=== PATIENT | male | born 1945 | race Caucasian/White ===

== ENCOUNTER 2024-12-25 19:11 | Emergency (ER) | payer MEDICARE, SELFPAY ==
--- NOTE | ~2024-12-25 | XR_ITS ---
XR chest 1V portable Ordering provider: Ese Livingston MD History: 79 years Male with . palpitations, hx afib vtaCH . Comparison: None. FINDINGS: MEDIASTINUM: The cardiac silhouette is slightly enlarged. LUNGS: No infiltrates, effusions or pneumothorax. OTHER: No free air under the diaphragm. IMPRESSION: No acute cardiopulmonary pathology. Reviewed, dictated and finalized at location A.
[2024-12-25 19:15] VITALS: BP 144/106; PULSE 126; RESP 18; TEMP 36.5; O2SAT 99
--- NOTE | 2024-12-25 19:23 | ECG_ITS ---
Test Date: 2024-12-25 19:22:47 Measurements Intervals [place] Rate: 124 P: 219 FL: 215 QRS: -40 QRSD: 103 T: 67 QT: 309 QTc: 444 Interpretive Statements SINUS TACHYCARDIA WITH FIRST DEGREE AV BLOCK WITH FIRST DEGREE AV BLOCK WITH OCCASIONAL VENTRICULAR PREMATURE COMPLEXES LEFT AXIS DEVIATION [QRS AXIS < -30] INCOMPLETE RIGHT BUNDLE BRANCH BLOCK [90+ ms QRS DURATION, TERMINAL R IN V1/V2, 40+ ms S IN I/aVL/V4/V5/V6] SEPTAL MYOCARDIAL INFARCTION , PROBABLY OLD [40+ ms Q WAVE IN V1/V2] No previous ECG available for comparison Electronically Signed On 12-26-2024 10:41:46 CDT by Alejandro Morales M.D.
[2024-12-25 19:35] LABS: Basophils Percent Auto 0.5 % (0.2-1.2); Eosinophils Absolute Auto 0.2 K/mm3 (0-0.3); Eosinophils Percent Auto 2.8 % (0-4.4); Hematocrit 40.9 % (42.0-52.0); Immature Granulocyte Absolute 0.02 K/mm3 (0.00-0.031); Immature Granulocyte Percent A 0.3 % (0-0.5); Lymphocytes Absolute Auto 2.12 K/mm3 (0.9-3.2); Lymphocytes Percent Auto 35.4 % (18.3-44.2); Mean Corpuscular HGB Conc 31.8 g/dl (32-36); Mean Corpuscular Volume 97.6 fl (80-100); Mean Platelet Volume 11.9 fl (7.4-10.4); Monocytes Absolute Auto 0.7 K/mm3 (0.1-0.6); Monocytes Percent Auto 12.4 % (2.6-8.5); Neutrophils Absolute Auto 2.9 K/mm3 (1.3-6.7); Neutrophils Percent Auto 48.6 % (45.5-73.1); Platelet Count Result 159 k/mm3 (150-375); Red Blood Count 4.19 M/mm3 (4.6-6.20); Red Cell Distribution Width 12.4 % (11.5-14.5)
--- NOTE | 2024-12-25 19:39 | ED_ITS ---
HPI - Arrhythmia/Palpitations General Chief Complaint: Arrhythmia/Palpitations Stated Complaint: palpations Time Seen by Provider: 12/25/24 19:21 Source: patient Mode of arrival: ambulatory Limitations: no limitations and other (speaks with a slight stutter/hesitancy in producing words but easily understandable) History of Present Illness HPI narrative: Patient visiting from out of state. Currently visiting because his girlfriend's sister . He resides in [place] which is where his care is. He reports with a history of palpitations and dizziness while seated eating dinner. He reports 8 episodes in 30 minutes PN each occurring for approximately 5-10 seconds each with the symptoms associated with shortness of breath. He has a history of atrial fibrillation status post ablation with the last 1 occurring in March of 2022. He also has atrial flutter since October 20 that is constant and he is scheduled for another ablation that was supposed to occur this week but which was rescheduled for February 12, 2025 given he was leaving town. He also has a history of ablation for of prior history of V-tach. That ablation occurred in [address] at [facility] [address]. Wisdom. His current welding machine operator helper arc is an EP Dr Dow through [facility], since 2007. He recently had a 10 [address] car ride to travel to this area.. He notes that while he had these episodes he knew he was having arrhythmia. He has no current symptoms since arriving to the emergency department. His symptoms were not associated with chest pain but he was having shortness of breath with them. He takes metoprolol 50 mg b.i.d. and Eliquis b.i.d. and has received all doses of these medications today (both AM and PM). Related Data Allergies Allergy/AdvReac Type Severity Reaction Status Date / Time penicillin G Allergy Palpitation Verified 12/25/24 19:13 s [facility] Past Medical History Medical History History of atrial flutter History of ventricular tachycardia History of atrial fibrillation Surgical History Surgical History History of cardiac radiofrequency ablation for vtach [address] [facility] Dr Wisdom History of cardiac ablation for atrial fibrillation March 2022; [facility] ([place]) Social History Social History (Updated 12/25/24 @ 20:37 by Ese Livingston MD) Additional living arrangements comments: Resides in [place] Exam 2 Narrative: GENERAL: Well-appearing, well-nourished, and in no acute distress. HEAD: Normocephalic, atraumatic. EYES: Non injected, non icteric ENT: Nares clear, no rhinorrhea or epistaxis. NECK: Supple. CHEST: Speaking in full sentences. No respiratory distress. HEART: Tachycardic rate and rhythm. . ABDOMEN: Soft, nondistended. EXTREMITIES: Normal range of motion. No lower extremity edema. SKIN: Warm, dry, no rash. NEURO: No focal deficits. Alert and oriented x3. PSYCH: Normal mood and affect. Course Vital Signs Vital signs: Vital Signs Temperature 97.7 F 12/25/24 19:15 Pulse Rate 126 H 12/25/24 19:15 Respiratory Rate 18 12/25/24 19:15 Blood Pressure 144/106 H 12/25/24 19:15 Pulse Oximetry 99 12/25/24 19:15 Oxygen Delivery Room Air 12/25/24 19:15 Temperature 97.7 F 12/25/24 19:15 Pulse Rate 123 H 12/25/24 22:41 Respiratory Rate 15 12/25/24 22:41 Blood Pressure 116/84 12/25/24 22:41 Pulse Oximetry 100 12/25/24 22:41 Oxygen Delivery Room Air 12/25/24 19:15 MDM - Arrhythmia/Palpitations MDM Narrative Medical decision making narrative: Patient presents with episodes of dizziness and palpitations associated with shortness of breath. There were approximately 8 episodes within a 30 minute. Occurring while he was seated for dinner prior to arrival. No position changes preceding or during these events. Each episode lasted for approximately 5-10 second He has history of atrial fibrillation, atrial flutter, V-tach and has required multiple ablations including in 1997 for V-tach as well as in March of 2022 for atrial fibrillation. Since October 20 he has had constant palpitations with atrial flutter and was scheduled for an ablation this week in [place] where he resides but had to reschedule since he is in the area visiting due to the of his girlfriend's sister. In the emergency department he is afebrile with vital signs notable for tachycardia and hypertension. Normocytic anemia with no prior for comparison. Patient declines IV push metoprolol 5mg as he states he always at rate in the 120s-130s. IV fluids ordered. Troponin normal. No electrolyte abnormalities. Orthostats are reviewed and he remains tachycardic but otherwise hemodynamically stable. Attempted to contact patient's welding machine operator helper arc through [facility] but informed that we would have to consult them in the morning. Patient reports he has a home cardiac monitoring device he wears and the report is on his laptop at the hotel. Inquiring if I can review it. I did note that sometimes the tracing of these is poor but if he desired I could review it it was brought to the hospital. Patient provides tracing from when he was episodic. It does show an episode of 14 beats the wide complex concerning for V-tach. Discussed with Dr Mullins at 22:15pm. We do not have EP services at [place]. Per him, this sounds chronic. Advises against driving a car. Given asymptomatic w/o complaints here and w/o issues of labs, recommends discharge and follow up with his welding machine operator helper arc. Does not recommend any changes to medication, either change in metoprolol dose/frequency or the addition of an alternative/additional antiarrhythmic. Differential Diagnosis Differential diagnosis: Likely palpitations, anxiety, sinus tachycardia, artial fibrillation, artial flutter, ventricular premature beats, supraventricular tachycardia, ventricular tachycardia, WPW and other (Thyroid abnormalities, electrolyte abnormalities) Lab Data Attestation: I reviewed the patient's lab results. 12/25/24 19:24 12/25/24 19:24 Labs: Lab Results 12/25/24 12/25/24 Range/Units 19:24 19:56 WBC 6.0 (4.5-10.0) K/mm3 RBC 4.19 L (4.6-6.20) M/mm3 Hgb 13.0 L (14.0-18.0) g/dL Hct 40.9 L (42.0-52.0) % MCV 97.6 (80-100) fl MCH 31.0 (26-34) pg MCHC 31.8 L (32-36) g/dl RDW 12.4 (11.5-14.5) % Plt Count 159 (150-375) k/mm3 MPV 11.9 H (7.4-10.4) fl Immature Gran % (Auto) 0.3 (0-0.5) % Neut % (Auto) 48.6 (45.5-73.1) % Lymph % (Auto) 35.4 (18.3-44.2) % Van Zandt % (Auto) 12.4 H (2.6-8.5) % Eos % (Auto) 2.8 (0-4.4) % Baso % (Auto) 0.5 (0.2-1.2) % Lymph # (Auto) 2.12 (0.9-3.2) K/mm3 [place]andt # (Auto) 0.7 H (0.1-0.6) K/mm3 Eos # (Auto) 0.2 (0-0.3) K/mm3 Baso # (Auto) 0.0 (0.0-0.1) K/mm3 Abs Immat Gran (auto) 0.02 (0.00-0.031) K/mm3 Absolute Neuts (auto) 2.9 (1.3-6.7) K/mm3 Absolute Nucleated RBC 0.000 (0.0-0.012) K/mm3 Nucleated RBC % 0.0 (0.0-0.2) % PT 16.1 H (11.1-14.7) Seconds INR 1.2 APTT 28.4 (22.3-36.8) Seconds Sodium 139 (137-145) mmol/L Potassium 3.8 (3.4-5.0) mmol/L Chloride 101 (98-107) mmol/L Carbon Dioxide 29 (22-30) mmol/L Anion Gap 9 (4-12) mmol/L BUN 25 H (9-20) mg/dL Creatinine 0.94 (0.7-1.3) mg/dL Estim Creat Clear Calc 62 ml/min Estimated GFR > 60 (59 - ) Glucose 112 H (65-110) mg/dL Calcium 9.3 (8.4-10.2) mg/dL Magnesium Cancelled 2.0 Total Bilirubin 0.4 (0.2-1.3) mg/dL AST 33 (17-59) U/L ALT 32 (6-50) U/L Alkaline Phosphatase 97 (38-126) U/L Troponin I < 0.012 (0.000-0.034) ng/mL Total Protein 8.0 (6.3-8.2) g/dL Albumin 4.5 (3.5-5.1) g/dL Lipase 36 (23-300) U/L TSH 3.450 (0.465-4.680) uIU/mL Imaging Data Radiologist's impression: Impressions Chest X-Ray 12/25/24 19:47 IMPRESSION: No acute cardiopulmonary pathology. ECG Data EKG #1: Attestation: I personally reviewed and interpreted this ECG as follows: ECG completion date: 12/25/24 ECG completion time: 19:22 Interpretation: Irregularly irregular rhythm at a rate of 124 beats per minute (ectopic atrial tachycardia versus afib) There are occasional possible P waves but they do not precede all QRS complexes. QRS 103. QT/QTC 309/382. No T-wave inversions. Discharge Plan Discharge Clinical Impression: Palpitations, Arrhythmia Patient Disposition: Home, Self-Care Condition: Stable Instructions: Antibiotic Form, Heart Palpitations (DC), Atrial Tachycardia (DC), Cardiac Ablation (DC) Additional Instructions: At this point is recommended that you continue taking your medications as prescribed. Call your welding machine operator helper arc, Dr Kong's office at [facility] in the morning to discuss. Do NOT drive in the interim. If it occurs again, present immediately to this or another Emergency Department. Can request records be obtained from your visit here today. Your TSH and electrolytes were normal today. Patient Language: Urdu Follow-up/Referrals: UNKNOWN,DOCTOR [Primary Care Provider] - Time of Disposition: 22:35
[2024-12-25 19:45] LABS: Alanine Aminotransferase 32 U/L (6-50); Albumin Level 4.5 g/dL (3.5-5.1); Alkaline Phosphatase 97 U/L (38-126); Anion Gap 9 mmol/L (4-12); Aspartate Amino Transferase 33 U/L (17-59); Bilirubin,Total 0.4 mg/dL (0.2-1.3); Blood Urea Nitrogen 25 mg/dL (9-20); Calcium 9.3 mg/dL (8.4-10.2); Carbon Dioxide 29 mmol/L (22-30); Chloride 101 mmol/L (98-107); Estimated CRCL calculation 62 ml/min; Estimated Glomerular Filt Rate > 60; Glucose 112 mg/dL (65-110); Lipase 36 U/L (23-300); Potassium 3.8 mmol/L (3.4-5.0); Sodium 139 mmol/L (137-145)
[2024-12-25 19:46] LABS: INR 1.2; Partial Thromboplastin Time 28.4 Seconds (22.3-36.8); Prothrombin Time 16.1 Seconds (11.1-14.7)
--- OUTSIDE RECORDS SUMMARY | 2024-12-25 19:52 | XMS_ITS | Encounter Summary ---
Author Organization [facility] stem Address [address] [place] [address] Care Team Providers Care Fast Food Team Member Name Role Phone Virginia Beckett MD Primary Care Provider Unava Lico Martin MD Primary Care Provider Sallie Heard Unavailable [phone] Ander Oropeza CNP Unavailable [phone] Ami Bethea MD Unavailable Lico Hendrix MD Unavailable [phone] Paulette Nowak CNP Unavailable Sara Garcia PA-C Unavailable Ander Oropeza CNP Unavailable [phone] Sara Garcia PA-C Unavailable Encounter Details Date Type Department Care Team (Late st Contact Info) Description 12/17/2014 Scanned Document [facility] Information Management - [facility] [address] [place] [address] Ordering, Generic Social History Tobacco Use Types Packs/Day Years Used Date Smoking Tobacco: Never Alcohol Use Standard Drinks/Week Comments Yes 0.8 (1 standard drink = 0.6 oz p ure alcohol) Sex and Gender Information Value Date Recorded Sex Assigned at Not on file Legal Sex Male 10:41 AM EDT Gender Identity Not on file Sexual Orientation Not on file documented as of this encounter Plan of Treatment Upcoming Encounters Date Type Department Care Team (Late st Contact Info) Description 02/11/2025 10:30 AM EDT Appointment [facility] Electrophysiology Device Laboratory - [facility] [address] [facility] [address] [place] [phone] Bhupendra Kong MD [address] [place] [address] 04/21/2025 10:00 AM EDT Office Visit [facility] Cardiovascular Medicine - [facility] [address] [place] [address] Bhupendra Kong MD [address] [place] [address] documented as of this encounter Visit Diagnoses Not on filedocumented in this encounter Additional Health Concerns Assessment Noted Time A Body Mass Index follow-up plan has been documented for the patient 10/30/2014 12:00 PM EST documented as of this encounter Care Teams Fast Food Team Member Relationship Specialty Start Date End Date Virginia Beckett MD PCP - General 08/02/12 08/29/15 Lico Hendrix MD [address] [place] [address] PCP - General 08/30/15 [place] [address] [address] PCP - [facility] 03/31/23 12/30/23 Ander Oropeza CNP [address] [place] [address] PCP - [facility] 12/30/22 03/30/23 [place] [address] [place] [address] PCP - [facility] 10/01/22 12/29/22 Lico Hendrix MD [address] [place] [address] PCP - [facility] 12/30/21 2 Paulette Nowak CNP [address] [place] [address] PCP - [facility] 10/01/21 12/29/21 Sara Garcia PA-C [address] [place] [address] PCP - [facility] 12/31/23 4 Ander Oropeza CNP [address] [place] [address] PCP - [facility] 07/01/24 4 Sara Garcia PA-C [address] [place] [address] PCP - [facility] 10/01/24 documented as of this encounter
--- OUTSIDE RECORDS SUMMARY | 2024-12-25 19:52 | XMS_ITS | Encounter Summary ---
Author Organization [facility] stem Address [address] [place] [address] Care Team Providers Care [employer] Room Service Supervisor Name Role Phone Lico Hendrix MD Primary Care Provider Sallie Heard Unavailable [phone] Ander Oropeza CNP Unavailable [phone] Ami Bethea MD Unavailable Lico Hendrix MD Unavailable [phone] Paulette Nowak HOSPITALITY COORDINATOR Unavailable Sara Garcia PA-C Unavailable Ander Oropeza CNP Unavailable [phone] Sara Garcia PA-C Unavailable Encounter Details Date Type Department Care Team (Late st Contact Info) Description 09/17/2015 Scanned Document [facility] Paulette Yang MD Social History Tobacco Use Types Packs/Day Years Used Date Smoking Tobacco: Never Alcohol Use Standard Drinks/Week Comments Yes 11 (1 standard drink = 0.6 oz pu re alcohol) Sex and Gender Information Value Date Recorded Sex Assigned at Not on file Legal Sex Male 10:41 AM EDT Gender Identity Not on file Sexual Orientation Not on file documented as of this encounter Miscellaneous Notes * Significant Event - Paulette Yang MD - 09/17/2015 8:00 AM EST From May 2013 until March 28, 2019, there was information from a Perioperative Nursing Data Set (PNDS) that may have been entered in a patient's chart without clinical intervention in some procedural/surgical encounters. PNDS ramirez may have been automatically populated with a value of 'YES' by a default setting within the EMR. To determine if this information was entered without an ability for clinical intervention in a given instance, please review the chart. documented in this encounter Plan of Treatment Upcoming Encounters Date Type Department Care Team (Late st Contact Info) Description 02/11/2025 10:30 AM EDT Appointment [facility] Electrophysiology Device Laboratory - [place] [address] [facility] [address] [place] [phone] Bhupendra Kong MD [address] [place] [address] 04/21/2025 10:00 AM EDT Office Visit [facility] Cardiovascular Medicine - [facility] [address] [place] [address] Bhupendra Kong MD [address] [place] [address] documented as of this encounter Visit Diagnoses Not on filedocumented in this encounter Additional Health Concerns Assessment Noted Time A Body Mass Index follow-up plan has been documented for the patient 10/30/2014 12:00 PM EST documented as of this encounter Care Teams [employer] Room Service Supervisor Relationship Specialty Start Date End Date Lico Hendrix MD [address] [place] [address] PCP - General 08/30/15 [place] [address] [address] [place] [address] PCP - [facility] 03/31/23 12/30/23 Ander Oropeza, HOSPITALITY COORDINATOR [address] [place] [address] PCP - [facility] 12/30/22 03/30/23 [place] [address] [address] [facility] [place] [address] PCP - [facility] 10/01/22 12/29/22 Lico Hendrix MD [address] [place] [address] PCP - [facility] 12/30/21 2 Paulette Nowak CNP [address] [place] [address] PCP - [facility] 10/01/21 12/29/21 Sara Garcia PA-C [address] [place] [address] PCP - [facility] 12/31/23 4 Ander Oropeza CNP [address] [place] [address] PCP - [facility] 07/01/24 4 Sara Garcia PA-C [address] [place] [address] PCP - [facility] 10/01/24 documented as of this encounter
--- OUTSIDE RECORDS SUMMARY | 2024-12-25 19:52 | XMS_ITS | Encounter Summary ---
Author Organization [facility] stem Address [address] [place] [address] Care Team Providers Care Regional Liaison Name Role Phone Lico Hendrix MD Primary Care Provider Sallie Heard Unavailable [phone] Ander Oropeza CNP Unavailable Ami Bethea MD Unavailable [phone] Lico Hendrix MD Unavailable [phone] Paulette Nowak [employer] Unavailable Sara Garcia PA-C Unavailable Ander Oropeza CNP Unavailable [phone] Sara Garcia PA-C Unavailable Encounter Details Date Type Department Care Team (Late st Contact Info) Description 03/10/2019 Scanned Document [facility] Information Management - [facility] [address] [place] [address] Ordering, Generic Social History Tobacco Use Types Packs/Day Years Used Date Smoking Tobacco: Never Smokeless Tobacco: Never Alcohol Use Standard Drinks/Week Comments Yes 11 (1 standard drink = 0.6 oz pu re alcohol) 2 six packs of beer a week Sex and Gender Information Value Date Recorded Sex Assigned at Not on file Legal Sex Male 10:41 AM EDT Gender Identity Not on file Sexual Orientation Not on file documented as of this encounter Plan of Treatment Upcoming Encounters Date Type Department Care Team (Late st Contact Info) Description 02/11/2025 10:30 AM EDT Appointment [facility] Electrophysiology Device Laboratory - [facility] [address] [facility] [address] [place] [phone] Bhupendra Kong MD [address] [place] [address] 04/21/2025 10:00 AM EDT Office Visit [facility] Cardiovascular Medicine - [facility] [address] [place] [address] Bhupendra Kong MD [address] [place] [address] documented as of this encounter Visit Diagnoses Not on filedocumented in this encounter Additional Health Concerns Assessment Noted Time PHQ-9 Depression Total Score: 0 02/15/20 19 9:07 AM EDT A fall risk assessment has been complete d for the patient 02/14/2019 9:06 AM EDT A Body Mass Index follow-up plan has been documented for the patient 10/30/2014 12:00 PM EST PHQ-2 Depression Total Score: 0 02/15/20 19 9:07 AM EDT documented as of this encounter Care Teams Regional Liaison Relationship Specialty Start Date End Date Lico Hendrix MD [address] [place] [address] PCP - General 08/30/15 [place] [address] [address] [place] [address] PCP - [facility] 03/31/23 12/30/23 Ander Oropeza CNP [address] [place] [address] PCP - [facility] 12/30/22 03/30/23 [place] [address] [address] [facility] [place] [address] PCP - [facility] 10/01/22 12/29/22 Lico Hendrix MD [address] [place] [address] PCP - [facility] 12/30/21 2 Paulette Nowak CNP [address] [place] [address] PCP - [facility] 10/01/21 12/29/21 Sara Garcia PA-C [address] [place] [address] PCP - [facility] 12/31/23 4 Ander Oropeza CNP [address] [place] [address] PCP - [facility] 07/01/24 4 Sara Garcia PA-C [address] [place] [address] PCP - [facility] 10/01/24 documented as of this encounter
--- OUTSIDE RECORDS SUMMARY | 2024-12-25 19:52 | XMS_ITS | Encounter Summary ---
Author Organization [facility] stem Address [address] [place] [address] Care Team Providers Care Director For [employer] Name Role Phone Virginia Beckett MD Primary Care Provider Unava Lico Martin MD Primary Care Provider Sallie Heard Unavailable [phone] Ander Oropeza CNP Unavailable [phone] Ami Bethea MD Unavailable Lico Hendrix MD Unavailable [phone] Paulette Nowak CNP Unavailable Sara Garcia PA-C Unavailable [phone] Ander Oropeza CNP Unavailable [phone] Sara Garcia PA-C Unavailable Encounter Details Date Type Department Care Team (Late st Contact Info) Description 11/20/2014 Scanned Document [facility] Information Management - [facility] [address] [place] [address] Ordering, Generic Social History Tobacco Use Types [...] as of this encounter Miscellaneous Notes * Miscellaneous - Ordering, Generic - 11/20/2014 12:00 PM EST documented in this encounter Plan of Treatment Upcoming Encounters Date Type Department Care Team (Late st Contact Info) Description 02/11/2025 10:30 AM EDT Appointment [facility] Electrophysiology Device Laboratory - [facility] [address] [facility] [address] [place] [phone] Bhupendra Kong MD [address] [place] [address] 04/21/2025 10:00 AM EDT Office Visit [facility] Cardiovascular Medicine - [facility] [address] [place], [place] [id number] Bhupendra Kong MD [address] [place] [address] documented as of this encounter Visit Diagnoses Not on filedocumented in this encounter Additional Health Concerns Assessment Noted Time A Body Mass Index follow-up plan has been documented for the patient 10/30/2014 12:00 PM EST documented as of this encounter Care Teams Director [employer] Relationship Specialty Start Date End Date Virginia Beckett MD PCP - General 08/02/12 08/29/15 Lico Hendrix MD [address] [place] [address] PCP - General 08/30/15 [place] [address] [address] [facility] [place], [place] [id number] PCP - [facility] 03/31/23 12/30/23 Ander Oropeza CNP [address] [place] [address] PCP - [facility] 12/30/22 03/30/23 [place] [address] [facility] [place] [address] PCP - [facility] 10/01/22 12/29/22 Lico Hendrix MD [address] [place] [address] PCP - [facility] 12/30/21 2 Paulette Nowak CNP [address] [place] [address] PCP - [facility] 10/01/21 12/29/21 Sara Garcia PA-C [address] [place] [address] PCP - [facility] 12/31/23 4 Ander Oropeza CNP [address] [place] [address] PCP - [facility] 07/01/24 4 Sara Garcia PA-C [address] [place] [address] PCP - [facility] 10/01/24 documented as of this encounter
--- OUTSIDE RECORDS SUMMARY | 2024-12-25 19:52 | XMS_ITS | Encounter Summary ---
Author Organization [facility] stem Address [address] [place] [address] Care Team Providers Care Daytime Caregiver Name Role Phone Virginia Beckett MD Primary Care Provider Unava Lico Martin MD Primary Care Provider [phone] Sallie Heard Unavailable [phone] Ander Oropeza CNP Unavailable [phone] Ami Bethea MD Unavailable Lico Hendrix MD Unavailable [phone] Paueltte Nowak CNP Unavailable Sara Garcia PA-C Unavailable [phone] Ander Oropeza CNP Unavailable [phone] Sara Garcia PA-C Unavailable Encounter Details Date Type Department Care Team (Late st Contact Info) Description 12/15/2014 Scanned Document [facility] Information Management - [facility] [address] [place] [address] Ordering, Generic Social History Tobacco Use Types [...] Info) Description 02/11/2025 10:30 AM EDT Appointment [facility] Electrophysiology Device Laboratory - [facility] [address] [facility] [address] [place] [phone] Bhupendra Kong MD [address] [place] [address] 04/21/2025 10:00 AM EDT Office Visit [facility] Cardiovascular Medicine - [facility] [address] [place] [address] Bhupendra Kong MD [address] [place] [address] documented as of this encounter Visit Diagnoses Not on filedocumented in this encounter Additional Health Concerns Assessment Noted Time A Body Mass Index follow-up plan has been documented for the patient 10/30/2014 12:00 PM EST documented as of this encounter Care Teams Daytime Caregiver Relationship Specialty Start Date End Date Virginia Beckett MD PCP - General 08/02/12 08/29/15 Lico Hendrix MD [address] [place] [address] PCP - General 08/30/15 [place] [address] [address] PCP - [facility] 03/31/23 12/30/23 Ander Oropeza CNP [address] [place] [address] PCP - [facility] 12/30/22 03/30/23 [place] [address] [place] [address] PCP - [facility] 10/01/22 12/29/22 Lico Hendrix MD [address] [place] [address] PCP - [facility] 12/30/21 2 Paulette Nowak CNP [address] [place] [address] PCP - [facility] 10/01/21 12/29/21 Sara Garcia PA-C [address] [place] [address] PCP - [facility] 12/31/23 4 Ander Oropeza CNP [address] [place] [address] PCP - [facility] 07/01/24 4 Sara Garcia PA-C [address] [place] [address] PCP - [facility] 10/01/24 documented as of this encounter
--- OUTSIDE RECORDS SUMMARY | 2024-12-25 19:52 | XMS_ITS | Encounter Summary ---
Author Organization [facility] stem Address [address] [place] [address] Care Team Providers Care Paid Search Manager Name Role Phone Lico Hendrix MD Primary Care Provider Sallie Heard Unavailable [phone] Ander Oropeza CNP Unavailable Ami Bethea MD Unavailable [phone] Lico Hendrix MD Unavailable [phone] Sara Garcia PA-C Unavailable Ander Oropeza CNP Unavailable [phone] Sara Garcia PA-C Unavailable Encounter Details Date Type Department Care Team (Late st Contact Info) Description 04/27/2022 Scanned Document [facility] [address] [place] [address] [place] [address] [place] [address] Social History Tobacco Use Types Packs/Day Years Used Date Smoking Tobacco: Never Smokeless Tobacco: Never Alcohol Use Standard Drinks/Week Comments Yes 11 (1 standard drink = 0.6 oz pu re alcohol) 2 six packs of beer a week Literacy Answer Date Recorded Do you ever need help reading important papers? No 03/08/2022 Do you have any legal concerns at this time? No 03/08/2022 Healthcare Answer Date Recorded Does your physical or mental health keep you from doing things you need or want to do? (work, school, take care of yourself) Yes 03/08/2022 Have you needed to see a provider but could not because of cost? No 03/08/2022 General Answer Date Recorded Do you agree to have [facility] and/or one of our community partners contact you for assistance with any of these needs? No 03/10/2022 Housing and Longterm Answer Date Recorde d Do you need help with housing? No 0 03/08/2022 Safety Answer Date Recorded Are you afraid you might be hurt in your living environment? No 03/10/2022 Family Care Answer Date Recorded Do you need help finding or paying for care for loved ones? For example, child care supervisor or day care for an older adult. No Education Answer Date Recorded Do you think more education could be helpful for you? No 03/08/2022 Employment/Income Answer Date Recorded Do you need help finding a j ob, better job or steady source of income? No 03/08/2022 Social Connection Answer Date Recorded Do you struggle to get toget her with friends or family on a regular basis? No 03/08/2022 Financial Resource Strain Answer Date R ecorded Do you have trouble paying f or your utility bills (gas, electricity, phone)? No 03/08/2022 Food Insecurity Answer Date Recorded Have you or a family member you live with been unable to get food when it was needed in the last year? No 03/10/2022 Transportation Answer Date Recorded Do you have trouble finding or paying for transp ortation? No 03/08/2022 Sex and Gender Information Value Date Recorded Sex Assigned at Not on file Legal Sex Male 10:41 AM EDT Gender Identity Not on file Sexual Orientation Not on file documented as of this encounter Plan of Treatment Upcoming Encounters Date Type Department Care Team (Late st Contact Info) Description 02/11/2025 10:30 AM EDT Appointment [facility] Electrophysiology Device Laboratory - [facility] [address] [facility] [address] [place] [address] Bhupendra Kong MD [address] [place] [address] 04/21/2025 10:00 AM EDT Office Visit [facility] Cardiovascular Medicine - [facility] [address] [place] [address] Bhupendra Kong MD [address] [place] [address] documented as of this encounter Visit Diagnoses Not on filedocumented in this encounter Additional Health Concerns Assessment Noted Time PHQ-9 Depression Total Score: 0 04/08/20 21 12:08 PM EDT A fall risk assessment has been complete d for the patient 04/08/2021 12:08 PM EDT A Body Mass Index follow-up plan has been documented for the patient 10/30/2014 12:00 PM EST PHQ-2 Depression Total Score: 0 04/08/20 21 12:08 PM EDT documented as of this encounter Care Teams Paid Search Manager Relationship Specialty Start Date End Date Lico Hendrix MD [address] [place] [address] PCP - General 08/30/15 [place] [address] [address] [place] [address] PCP - [facility] 03/31/23 12/30/23 Ander Oropeza CNP [address] [place] [address] PCP - [facility] 12/30/22 03/30/23 [place] [address] [address] [place] [address] PCP - [facility] 10/01/22 12/29/22 Lico Hendrix MD [address] [place] [address] PCP - [facility] 12/30/21 2 Sara Garcia PA-C [address] [place] [address] PCP - [facility] 12/31/23 4 Ander Oropeza CNP [address] [place] [address] PCP - [facility] 07/01/24 4 Sara Garcia PA-C [address] [place] [address] PCP - [facility] 10/01/24 documented as of this encounter
--- OUTSIDE RECORDS SUMMARY | 2024-12-25 19:52 | XMS_ITS | Encounter Summary ---
Author Organization [facility] stem Address [address] [place] [address] Care Team Providers Care Epic Prelude Analyst Name Role Phone Lico Hendrix MD Primary Care Provider [phone] Sallie Heard Unavailable [phone] Ander Oropeza CNP Unavailable [phone] Ami Bethea MD Unavailable [phone] Lico Hendrix MD Unavailable [phone] Paulette Nowak TECHNICAL EDITOR Unavailable Sara Garcia PA-C Unavailable Ander Oropeza CNP Unavailable Sara Garcia PA-C Unavailable Encounter Details Date Type Department Care Team (Late st Contact Info) Description 12/06/2016 Scanned Document [facility] Information Management - [facility] [address] [place] [address] Ordering, Generic Social History Tobacco Use Types [...] Description 02/11/2025 10:30 AM EDT Appointment [facility] Electrophysiology Device Laboratory - [facility] [address] [facility] [address] [place] [phone] Bhupendra Kong MD [address] [place] [address] 04/21/2025 10:00 AM EDT Office Visit [facility] Cardiovascular Medicine - [facility] [address] [place] [address] Bhupendra Kong MD [address] [place] [address] documented as of this encounter Visit Diagnoses Not on filedocumented in this encounter Additional Health Concerns Assessment Noted Time PHQ-9 Depression Total Score: 2 06/01/20 16 8:59 AM EDT A Body Mass Index follow-up plan has been documented for the patient 10/30/2014 12:00 PM EST PHQ-2 Depression Total Score: 2 06/01/20 16 8:59 AM EDT documented as of this encounter Care Teams Epic Prelude Analyst Relationship Specialty Start Date End Date Lico Hendrix MD [address] [place] [address] PCP - General 08/30/15 [place] [address] [address] [facility] [place] [address] PCP - [facility] 03/31/23 12/30/23 Ander Oropeza CNP [address] [place] [address] PCP - [facility] 12/30/22 03/30/23 [place] [address] [place] [address] PCP - [facility] 10/01/22 12/29/22 Lico Hendrix MD [address] [place] [address] PCP - [facility] 12/30/21 2 Paulette Nowak TECHNICAL EDITOR [address] [place] [address] PCP - [facility] 10/01/21 12/29/21 Sara Garcia PA-C [address] [place] [address] PCP - [facility] 12/31/23 4 Ander Oropeza CNP [address] [place] [address] PCP - [facility] 07/01/24 4 Sara Garcia PA-C [address] [place] [address] PCP - [facility] 10/01/24 documented as of this encounter
--- OUTSIDE RECORDS SUMMARY | 2024-12-25 19:52 | XMS_ITS | Encounter Summary ---
Author Organization [facility] stem Address [address] [place] [address] Care Team Providers Care Certified [employer] Engineer Name Role Phone Lico Hendrix MD Primary Care Provider Sallie Heard Unavailable [phone] Ander Oropeza CNP Unavailable [phone] Ami Bethea MD Unavailable Lico Hendrix MD Unavailable [phone] Paulette Nowak BIOMASS PRODUCTION MANAGER Unavailable Sara Garcia PA-C Unavailable [phone] Ander Oropeza CNP Unavailable [phone] Sara Garcia PA-C Unavailable Encounter Details Date Type Department Care Team (Late st Contact Info) Description 03/04/2019 Scanned Document [facility] Information Management - [facility] [address] [place] [address] Ordering, Generic Social History Tobacco Use Types [...] Info) Description 02/11/2025 10:30 AM EDT Appointment [facility] Electrophysiology Device Laboratory - [facility] [address] [facility] [address] [place] [phone] Bhupendra Kong MD [address] [place] [address] 04/21/2025 10:00 AM EDT Office Visit [facility] Cardiovascular Medicine - [facility] [address] [place] [address] Bhupendra Kong MD [address] [place] [address] documented as of this encounter Procedures Procedure Name Priority Date/Time Associated Diagnosis Comments PROCEDURES (SCANNED) 03/04/2019 12:00 PM EDT documented in this encounter Results * PROCEDURES (SCANNED) (03/04/2019 12:00 PM EDT) Anatomical Region Laterality Modality Other us Generic Ordering HEALTH MAINTENANCE Final Result documented in this encounter Visit Diagnoses Not on filedocumented [...] documented as of this encounter Care Teams Certified [employer] Engineer Relationship Specialty Start Date End Date Lico Hendrix MD [address] [place] [address] PCP - General 08/30/15 [place] [address] [address] [place] [address] PCP - [facility] 03/31/23 12/30/23 Ander Oropeza, BIOMASS PRODUCTION MANAGER [address] [facility] [place] [address] PCP - [facility] 12/30/22 03/30/23 [place] [address] [address] [facility] [place] [address] PCP - [facility] 10/01/22 12/29/22 Lico Hendrix MD [address] [place] [address] PCP - [facility] 12/30/21 2 Paulette Nowak CNP [address] [place] [address] PCP - [facility] 10/01/21 12/29/21 Sara Garcia PA-C [address] [place] [address] PCP - [facility] 12/31/23 4 Ander Oropeza CNP [address] [facility] [place] [address] PCP - [facility] 07/01/24 4 Sara Garcia PA-C [address] [place] [address] PCP - [facility] 10/01/24 documented as of this encounter
--- OUTSIDE RECORDS SUMMARY | 2024-12-25 19:52 | XMS_ITS | Clinical Summary ---
Author Organization [facility] stem Address [address] [place] [address] Care Team Providers Care Hot Braider Name Role Phone Lico Hendrix MD Primary Care Provider [phone] Sara Garcia PA-C Unavailable [phone] Allergies Active Allergy Reactions Criticality Noted Date Comments Penicillin V Potassium Other (See Comments) 1976, received shot of PCN, turned blue and felt very weak and head spinning Medications multivitamin capsule 1 capsule capsule by mouth once a day 90 capsule 010 Active ferrous sulfate (IRON) 325 (65 FE) MG tablet 1 tablet tablet by mouth once a day 30 tablet 12 010 Active ascorbic acid (ASCORBIC ACID WITH GAVIN HIPS) 500 MG tablet 1 tablet tablet by mouth once a day 180 tablet 3 010 Active cholecalciferol, vitamin D3, 25 mcg (1,000 unit) capsule Take 1,000 Units by mouth daily. Active apixaban (ELIQUIS) 5 mg Tab tabletIndications :Paroxysmal atrial fibrillation (CMS-hcc) Take 1 tablet (5 mg total) by mouth 2 (two) times daily. 180 tablet 3 024 Active amiodarone (PACERONE) 200 MG tablet Take 3 tablets (600 mg total) by mouth daily for 5 days, THEN 2 tablets (400 mg total) daily for 5 days, THEN 1 tablet (200 mg total) daily. 115 tablet Active fish oil-omega-3 fatty acids 300-1,000 mg capsule Take by mouth daily. Patient takes fish oil but is unsure of dose. Active metoprolol succinate (TOPROL-XL) 50 MG 24 hr tablet Take 1 tablet (50 mg total) by mouth daily. Active Additional Information Patient taking differently:50 mg Oral2 times daily, Reason: Patient Choice, Reported on 11/25/2024 rosuvastatin (CRESTOR) 10 MG tabletIndications :Hyperlipidemia, unspecified hyperlipidemia type TAKE 1 TABLET BY MOUTH DAILY 90 tablet Active rosuvastatin (CRESTOR) 10 MG tabletIndications :Hyperlipidemia, unspecified hyperlipidemia type Take 1 tablet (10 mg total) by mouth daily. 90 tablet 3 024 2024 Discontinued Active Problems Problem Noted Date Diagnosed Date Atypical atrial flutter 02/20/2024 Assessment & Plan (09/14/2024 11:32 AM EST): Persistent atypical atrial flutter. Breakthrough on amiodarone. Relatively well rate controlled. Discussed limited utility to further AAD use as breakthrough on amiodarone. Stop amiodarone. Increase toprol to 100mg once daily. Repeat holter in 3-4 weeks to assess rate control on toprol. Discussed repeat ablation. Plan is to defer at this time but low threshold if symptoms or poor rate control on Toprol alone. Continue Eliquis. Assessment & Plan (02/20/2024 5:00 PM EDT): Paroxysmal, asymptomatic. Discussed next steps including continued medication strategy, alternative AAD (likely amio), or repeat ablation. As he is asymptomatic, he would like to continue with current management. He will continue to monitor his burden and we will also obtain a TTE. If worsening burden or any changes concerning for tachymediated cardiomyopathy, will plan for amio vs ablation. Continue dofetilide, toprol and apixaban. Labs and ECG reviewed. Follow up in 6 months. Hyperlipemia 03/03/2022 Assessment & Plan (03/06/2022 10:28 AM EDT): - Continue Crestor 10 mg daily. Encounter for medication review 03/03/2022 Assessment & Plan (03/03/2022 1:50 AM EDT): Medication Reconciliation is complete. Medication list is updated under the admission med rec. Information that is incomplete/needs clarification: not applicable Source of medication information: patient Chest pain 03/02/2022 Assessment & Plan (03/06/2022 10:30 AM EDT): - Patient presented to the emergency department for evaluation of for acute onset of chest pain. Chest pain started yesterday. Patient had the pulmonary vein ablation yesterday. He states that he developed midsternal chest pain later in the day. He described the pain as pressure-like. Pain is exacerbated by activity and relieved by rest. Chest pain is non radiating. Chest pain has resolved at the time of my evaluation. He denies diaphoresis, nausea vomiting. - Trop: 734-->519. - CXR: No acute cardiopulmonary process. - EKG: NSR with PVCs. - Given recent ablation, troponin expected to be elevated. - No acute tele-events. - 2D Echo reviewed. - EP Cardiology consulted. - D/w EP, Pt's CP resolved, cardiac w/u neg, likely msk etiology. Per Cardiology, no further inpatient w/u or monitoring recommended and Pt cleared for d/c home and outpatient f/u. - Pt HD stable, VSS, tolerating PO intake. - Pt discharged home. Pt/family instructed to f/u w/ his PCP in 1 wk, f/u w/ Cardiology as instructed, and to Call 911/return to ER if any recurrence/worsening of symptoms, any chest pain, palpitations, shortness of breath, respiratory distress, fevers/chills, intractable headaches, intractable abdominal pain/nausea/vomiting/diarrhea, acute/new/focal neurological changes, loss of consciousness, bleeding episodes, and/or any injuries/traumas/falls. suspect DANIKA (obstructive sleep apnea) 08/27/2019 Assessment & Plan (03/06/2022 10:27 AM EDT): - Nocturnal CPAP. 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 Normal LV function Assessment & Plan (09/14/2024 11:28 AM EST): See atypical atrial flutter plan. Assessment & Plan (02/20/2024 5:01 PM EDT): See atypical atrial flutter plan. Assessment & Plan (03/06/2022 10:27 AM EDT): - Continue Eliquis 5 mg b.i.d. as well as Tikosyn 375 mcg b.i.d.. - Pt monitored on plant general manager. - Electrophysiology consulted, no further inpatient w/u or monitoring recommended, continue home meds. Paroxysmal ventricular tachycardia 03/20/2013 Overview (03/20/2013): VT and PVC's with LBBB superior axis, s/p VT ablation at [facility] in 1997 Tony de la Tourette's syndrome 03/20/2013 Resolved Problems Problem Noted Date Diagnosed Date Resolved Date MICHAEL (acute kidney injury) 08/23/2019 Assessment & Plan (08/28/2019 8:17 AM EST): - Creat normal at baseline - Presented with mild elevation, 1.39. - Now down to 0.93 today - no hydro on ultrasound. 1.1 cm echogenic structure on right kidney ??asymmetric medullary fat or AML? - Improving -will need f/u Assessment & Plan (08/27/2019 1:37 PM EST): - Creat normal at baseline - Presented with mild elevation, 1.39. - Now down to 0.93 today - no hydro on ultrasound. 1.1 cm echogenic structure on right kidney ??asymmetric medullary fat or AML? - Improving -will need f/u Assessment & Plan (08/26/2019 10:16 AM EST): - Creat normal at baseline - Presented with mild elevation, 1.39., downtrended and now back up - Now down to 1.01 today - no hydro on ultrasound. 1.1 cm echogenic structure on right kidney ??asymmetric medullary fat or AML? - Improving Assessment & Plan (08/25/2019 10:46 AM EST): Creat normal at baseline - Presented with mild elevation, 1.39., downtrended and now back up - Now down to 1.14 today - no hydro on ultrasound. 1.1 cm echogenic structure on right kidney ??asymmetric medullary fat or AML? - Improving Assessment & Plan (08/24/2019 11:41 AM EST): Creat normal at baseline - Presented with mild elevation, 1.39., downtrended and now back up - Will check urine lytes and renal ultrasound Assessment & Plan (08/23/2019 2:35 PM EST): Creat normal at baseline - Presented with mild elevation, 1.39 - Likely related to mild volume depletion as improving Atrial fibrillation and flutter 08/22/2019 02/20/2024 Assessment & Plan (08/28/2019 8:17 AM EST): - Ongoing for months - Symptoms of palpations - HR in the 150s at home - Hx of Darrian (1996) and Silveriofib (2011) ablation - Stress TTE 2016 preserved EF, had run of SVT during - Last followed with EP 08/2017 - started on cardizem gtt for rate control-->eveloped pauses on cardizem gtt and subsequently stopped - CHADS VASC of 2, anticoagulation with Eliquis - TSH within normal limits - 2D echo with EF 35% with severely dilated RA (was EF 59% 09/16) - EP performed GERI/DCCV on 08/25 and rec Tikosyn + Eliquis - EKG q 12 hours to monitor Qtc and adjust Tikosyn dosing if needed - 08/26 QTc prolonged 538-> Tikosyn decreased to 375mcg from 500mcg per EP recommendations -08/27 am EKG QTc was 492 08/28- QTc 475 - EP following-->spoke with Maren Carrera on 08/27 am, tonight is last dose of Tikosyn where patient needs to remain observed. Plan for d/c on 08/28 am if QTc remains ok. Will ready d/c summary and obtain medications today Assessment & Plan (08/27/2019 1:36 PM EST): - Ongoing for months - Symptoms of palpations - HR in the 150s at home - Hx of Vtamaximo (1996) and Silveriofib (2011) ablation - Stress TTE 2016 preserved EF, had run of SVT during - Last followed with EP 08/2017 - started on cardizem gtt for rate control-->eveloped pauses on cardizem gtt and subsequently stopped - CHADS VASC of 2, anticoagulation with Eliquis - TSH within normal limits - 2D echo with EF 35% with severely dilated RA (was EF 59% 09/16) - EP performed GERI/DCCV on 08/25 and rec Tikosyn + Eliquis - EKG q 12 hours to monitor Qtc and adjust Tikosyn dosing if needed - 08/26 QTc prolonged 538-> Tikosyn decreased to 375mcg from 500mcg per EP recommendations -08/27 am EKG QTc was 492 - EP following-->spoke with Maren Carrera on 08/27 am, tonight is last dose of Tikosyn where patient needs to remain observed. Plan for d/c on 08/28 am if QTc remains ok. Will ready d/c summary and obtain medications today Assessment & Plan (08/26/2019 10:22 AM EST): - Ongoing for months - Symptoms of palpations - HR in the 150s at home - Hx of Vtach (1996) and A.fib (2011) ablation - Stress TTE 2016 preserved EF, had run of SVT during - Last followed with EP 08/2017 - Developed on cardizem gtt and subsequently stopped - CHADS VASC of 2, anticoagulation with Eliquis - TSH within normal limits - 2D echo with EF 35% with severely dilated RA (was EF 59% 09/16) - EP performed GERI/DCCV on 08/25 and rec Tikosyn - Holding metoprolol and started on Tikosyn - EKG q 12 hours to monitor Qtc and adjust Tikosyn dosing if needed - Qtc 538-> Tikosyn decreased to 375mg from 500mg per EP - EP following Assessment & Plan (08/27/2019 8:49 AM EST): 74 y.o. 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 presented with Afib with RVR prompting GERI/ DCCV followed by Tikosyn loading 08/25, maintaining SR with acceptable QTc - Started Tikosyn 500 mcg 08/25 at 1700 - prolonged QTc this morning at 540 ms after pause events; Continue Tikosyn 375 mcg q 12 hr - will need to stay IPD for 5 doses of Tikosyn (5th dose 08/27- 1900) - continue Eliquis for thromboembolism prophylaxis without any missed doses, stop ASA (currently no indication) - continue tele, ECG 2 hr after every dose, keep k>4/ mag >2 - will arrange for follow up TTE once maintaining SR at outpt follow up, follow up appt arranged - please provide filled prescription of Tikosyn 375 mcg q 12hr with Eliquis 5mg bid with a refill prior to discharge - hold BB due to bradycardia to avoid prolonged QT/ BP will not tolerate addition of SUMI/ ARB - anticipate discharge home tomorrow morning pending clinical course overnight Thank you for allowing us to participate in the care of your patient. Above discussed with rounding staff- Dr. Mauricio/ ICU team Assessment & Plan (08/25/2019 10:42 AM EST): Ongoing for months Symptoms of palpations HR in the 150s at home Hx of Vtach (1996) and A.fib (2011) ablation Stress TTE 2016 preserved EF, had run of SVT during Last followed with EP 08/2017 - Developed pauses overnight on cardizem gtt and subsequently stopped - Will continue metoprolol and uptitrate as long as no further pauses - CHADS VASC of 2, anticoagulation with lovenox initiated but now on hold due to EP study - TSH within normal limits - 2D echo with EF 35% with severely dilated RA (was 59% 09/16) - EP consulted, for EP study today with possible ablation Assessment & Plan (08/24/2019 11:38 AM EST): Ongoing for months Symptoms of palpations HR in the 150s at home Hx of Vtach (1996) and A.fib (2011) ablation Stress TTE 2016 preserved EF, had run of SVT during Last followed with EP 08/2017 - Developed pauses overnight on cardizem gtt and subsequently stopped - Will continue metoprolol and uptitrate as long as no further pauses - CHADS VASC of 2, will start anticoagulation with lovenox - TSH within normal limits - 2D echo ordered - EP consult pending Assessment & Plan (08/23/2019 2:27 PM EST): Ongoing for months Symptoms of palpations HR in the 150s at home Elevated [id number] Hx of Vtach (1996) and A.fib (2011) ablation Stress TTE 2016 preserved EF, had run of SVT during Last followed with EP 08/2017 - Developed pauses overnight on cardizem gtt and subsequently stopped - Will continue metoprolol and uptitrate as long as no further pauses - CHADS VASC of 2, will start anticoagulation with lovenox - TSH within normal limits - 2D echo ordered - EP consult pending Encounters Date Type Department Care Team Description 12/22/2024 Telephone [facility] Cardiovascular Medicine - [facility] [address] [place] [address] Bhupendra Kong MD Appointment 12/09/2024 3:23 PM EDT - 12/09/2024 11:59 PM EDT Hospital Encounter [facility] - [place] [address] [place] [address] Paroxysmal atrial fibrillation ([facility]) Discharge Disposition: Home or Self Care 11/25/2024 9:07 AM EST [facility]esthesia Event [facility] [place] [address] [place] [address] Fay Mtz MD Banerjee, Gargi, MD 11/25/2024 8:17 AM EST - 11/25/2024 11:59 PM EST Hospital [facility] [place] [address] [place] [address] Brittny Schaefer MD Paroxysmal atrial fibrillation ([facility]) Discharge Disposition: Home or Self Care 11/24/2024 Telephone [facility] Non-Invasive - [place] [address] [place] [address] Isidra Johnson RN 11/11/2024 10:55 AM EST - 11/11/2024 11:59 PM EST Hospital Encounter [facility] - [place] [address] [place] [address] Paroxysmal atrial fibrillation ([facility]) Discharge Disposition: Home or Self Care 11/11/2024 Orders Only [facility] - [place] [address] [place] [address] Bhupendra Kong MD Paroxysmal atrial fibrillation ([facility]) (Primary Dx) 11/07/2024 9:30 AM EST Clinical Support [facility] - [facility] [address] [place] [address] Brittny Schaefer MD Laanstra, Nancy, RN Paroxysmal atrial fibrillation ([facility]) (Primary Dx) 10/06/2024 7:00 AM EST Clinical Support [facility] - [facility], Christi Barrios [address] [place] [address] Ibis Baird DO DANIKA (obstructive sleep apnea) (Primary Dx) 10/03/2024 12:00 PM EST Clinical Support [facility] - [place] [id number] [place] [address] Ibis Baird DO Painter, Candice, MA DANIKA (obstructive sleep apnea) from Last 3 Months Immunizations Name Administration Dates Next Due COVID-19 Pfizer Monovalent 12 yr.+ (Purple Cap) 12/11/2020,11/20/2020 DTaP 12/17/2007 FLUCELVAX CIIV4 Preservative Free 08/20/2022 Influenza High Dose Quad PF 65 Yrs.+ 10/10/2021, 07/12/2020 Influenza High Dose [id number] Adjuvant 10/30/2018 Influenza High dose, TIV PF 09/10/2019, 3 Pneumococcal Conjugate 13-Valent 06/01/2016 Pneumococcal Polysaccharide 01/09/2018 Tdap 01/10/2018,01/10/2018 Zoster (Subcutaneous) 11/26/2012 Zoster Recombinant 07/12/2020,2020 Family History Medical History Relation Name Comments Cancer Maternal Aunt Diabetes Mother Heart disease Paternal Grandfather Blindness Neg Hx Glaucoma Neg Hx Macular degeneration Neg Hx Retinal detachment Neg Hx Strabismus Neg Hx Relation Name Status Comments Brother 1 Alive Brother 2 Alive Father Maternal Aunt Mother Paternal Grandfather Sister Alive Social History Tobacco Use Types Packs/Day Years Used Date Smoking Tobacco: Never Smokeless Tobacco: Never Tobacco Cessation:Counseling Given: Not Answered Alcohol Use Standard Drinks/Week Comments Yes 1 (1 standard drink = 0.6 oz pur e alcohol) 2 beer per week Literacy Answer Date Recorded Do you ever need help reading important papers? No 08/09/2023 Do you have any legal concerns at this time? No 08/09/2023 Healthcare Answer Date Recorded Does your physical or mental health keep you from doing things you need or want to do? (work, school, take care of yourself) No 08/09/2023 Have you needed to see a provider but could not because of cost? No 08/09/2023 General Answer Date Recorded Do you agree to have [facility] and/or one of our community partners contact you for assistance with any of these needs? No 08/09/2023 Housing and Halfway Answer Date Recorde d Do you need help with housing? No 1 10/09/2022 Are you homeless or worried that you might be in the future? No 08/09/2023 Safety Answer Date Recorded Are you afraid you might be hurt in your living environment? No 09/09/2024 Family Care Answer Date Recorded Do you need help finding or paying for care for loved ones? For example, rn maternal child or day care for an older adult. No Education Answer Date Recorded Do you think more education could be helpful for you? No 08/09/2023 Employment/Income Answer Date Recorded Do you need help finding a j ob, better job or steady source of income? No 08/09/2023 Social Connection Answer Date Recorded Do you struggle to get toget her with friends or family on a regular basis? No 08/09/2023 Financial Resource Strain Answer Date R ecorded Do you have trouble paying f or your utility bills (gas, electricity, phone)? No 08/09/2023 Food Insecurity Answer Date Recorded Have you or a family member you live with been unable to get food when it was needed in the last year? No 12/27/2023 Transportation Answer Date Recorded Do you have trouble finding or paying for transp ortation? No 08/09/2023 Sex and Gender Information Value Date Recorded Sex Assigned at Not on file Legal Sex Male 10:41 AM EDT Gender Identity Not on file Sexual Orientation Not on file Last Filed Vital Signs Vital Sign Reading Time Taken Comments Blood Pressure 117/76 11/25/2024 10:31 AM EST Pulse 94 11/25/2024 10:31 AM EST Temperature 36.3 C (97.3 F) 11/25/2024 10:00 AM EST Respiratory Rate 16 11/25/2024 10:31 AM EST Oxygen Saturation 94% 11/25/2024 10:31 AM EST Inhaled Oxygen Concentration - - Weight 78 kg (172 lb) 11/25/2024 8:27 AM EST Height 185.4 cm (6' 1 ) 11/25/2024 8:27 AM EST Body Mass Index 22.69 11/25/2024 8:27 AM EST Plan of Treatment Upcoming Encounters Date Type Department Care Team (Late st Contact Info) Description 02/11/2025 10:30 AM EDT Appointment [facility] Electrophysiology Device Laboratory - [facility] [address] [place] [address] Bhupendra oKng MD [address] [place] [address] 04/21/2025 10:00 AM EDT Office Visit [facility] - [facility] [address] [place] [address] Bhupendra Kong MD [address] [place] [address] Health Maintenance Due Date Last Done Comments Adult RSV (Respiratory Syncy tial Virus) Vaccine (1 - 1-dose 75+ series) 2019 COVID- 19 Vaccine ( season) 2024 07/22/2023, 08/13/2022, 01/06/2022, Additional history exists INFLUENZA VACCINE (#1) 2024 2, 10/10/2021, 07/12/2020, Additional history exists Social Determinants of Health 08/09/2024 08/09/2023 Depression Screening 10/01/2024 12/12/2023 SDOH FOOD 12/26/2024 12/27/2023, 04/08/2021 SENIOR WELL VISIT (65+) 12/26/2024 12/27/19 24, 10/10/2021, 2020, Additional history exists FALL RISK SCREENING 03/03/2025 03/03/2024, 04/08/2021, 2020, Additional history exists BMI/BMI PERCENTILE ANNUAL MEASUREMENT 11/25/2025 11/25/2024 Adult Tdap/Td Vaccine 01/11/2028 01/10/2018 , 01/10/2018, 12/17/2007 LIPID PANEL 12/26/2028 12/27/2023, 10/01, 2020, Additional history exists Pneumococcal Vaccine Age 50+ Completed 01/09/2018, 06/01/2016 SHINGRIX VACCINE SERIES Completed 07/12/20, 2020, 11/26/2012 HEPATITIS C SCREENING Discontinued 10/10/2021 BASIC METABOLIC PROFILE Discontinued 12/10/19, 11/11/2024, 08/05/2024, Additional history exists Medical Devices Implanted Type Area Machine Cage Maker Device Identifier Shelf Expiration Date Model / Serial / Lot Implant: Misc; Suture [place] Pushlock 3.5 X 19.5mm (Arthrex) - Sna Implanted:Qty: 1 on 05/26/2022 by Ami Bethea MD at [facility] Left: Shoulder ARTHREX [id number] 05/31/2026 [id number] / NA / [id number] Implant: Misc; Suture [place] Swivelock 4.75 X 19.1mm (Arthrex) - Sna Implanted:Qty: 1 on 05/26/2022 by Ami Bethea MD at [facility] Left: Shoulder ARTHREX [id number] 02/28/2026 [id number] / NA / [id number] Procedures Procedure Name Priority Date/Time Associated Diagnosis Comments CBC Routine 12/09/2024 3:23 PM EDT Paroxysmal atrial fibrillation (CMS-hcc) PROTHROMBIN TIME/INR Routine 12/09/2024 3:23 PM EDT Paroxysmal atrial fibrillation (CMS-hcc) MAGNESIUM Routine 12/09/2024 3:23 PM EDT Paroxysmal atrial fibrillation (CMS-hcc) BASIC METABOLIC PROFILE Routine 12/10/19 3:23 PM EDT Paroxysmal atrial fibrillation (CMS-hcc) CARDIOLOGY RESULTS 11/27/2024 10 :49 AM EST ELECTROPHYSIOLOGY PROCEDURE Routine 11/25/2024 10:55 AM EST Paroxysmal atrial fibrillation (CMS-hcc) ECG 12-LEAD Routine 11/25/2024 10:34 AM EST ECG 12-LEAD Routine 11/25/2024 10:28 AM EST ECG 12-LEAD Routine 11/25/2024 10:27 AM EST ECG 12-LEAD Routine 11/25/2024 10:25 AM EST ECG 12-LEAD Routine 11/25/2024 10:24 AM EST ECG 12-LEAD Routine 11/25/2024 9:36 AM EST Atypical atrial flutter (CMS-hcc) POC GLUCOSE OP Routine 11/25/2024 8:39 AM EST PROTHROMBIN TIME/INR Routine 11/11/2024 10:55 AM EST Paroxysmal atrial fibrillation (CMS-hcc) MAGNESIUM Routine 11/11/2024 10:55 AM EST Paroxysmal atrial fibrillation (CMS-hcc) BASIC METABOLIC PROFILE Routine 11/11/19 10:55 AM EST Paroxysmal atrial fibrillation (CMS-hcc) CBC Routine 11/11/2024 10:55 AM EST Paroxysmal atrial fibrillation (CMS-hcc) ECG 12-LEAD Routine 11/07/2024 9:52 AM EST Paroxysmal atrial fibrillation (CMS-hcc) LIPID PROFILE Routine 12/27/2023 11:43 AM EDT Hyperlipidemia, unspecified hyperlipidemia type HEPATITIS C ANTIBODY Routine 10/10/2021 11:53 AM EST Need for hepatitis C screening test from Last 3 Months or Most Recently Relevant to Health Maintenance Results * (ABNORMAL) PT/INR (Once) (12/09/2024 3:23 PM EDT) Only the most recent of2 resultswithin the time period is included. Prothrombin Time 16.4(H) 11.5 - 14.5 sec 12/09/2024 9:36 PM EDT [facility] INR 1.35 12/09/2024 9:36 PM EDT [facility] Comment: Usual Intensity Therapeutic Range.. 2.0 to 3.0 High Intensity Therapeutic Range... 2.5 to 3.5 Common Critical Alarm Value............... 5.0 Plasma BLOOD SPECIMEN / Unknown 12/09/2024 3:23 PM EDT 12/09/2024 3:36 PM EDT us Bhupendra Kong MD LAB BLOOD ORDERABLES Final Resul t [facility] [address] [facility] [place] [address] * (ABNORMAL) CBC (Once) (12/09/2024 3:23 PM EDT) Only the most recent of2 resultswithin the time period is included. WBC Count 5.0 3.8 - 10.6 K/uL 12/09/2024 9:16 PM EDT [facility] LABORATORY RBC Count 3.94(L) 4.40 - 6.00 M/uL 12/09/2024 9:16 PM EDT [facility] Hemoglobin 12.6(L) 13.5 - 17.0 g/dL 12/09/2024 9:16 PM EDT [facility] Hematocrit 37.6(L) 41 - 53 % 12/09/2024 9:16 PM EDT [facility] MCV 95.3 80 - 100 fl 12/09/2024 9:16 PM EDT [facility] MCH 31.9 26 - 34 pg 12/09/2024 9:16 PM EDT [facility] MCHC 33.5 31 - 37 g/dL 12/09/2024 9:16 PM EDT [facility] RDW 13.0 <14.5 % 12/09/2024 9:16 PM EDT [facility] Platelet Count 177 150 - 450 K/uL 12/09/2024 9:16 PM EDT [facility] Blood BLOOD SPECIMEN / Unknown 12/09/2024 3:23 PM EDT 12/09/2024 3:36 PM EDT us Bhupendra Kong MD LAB BLOOD ORDERABLES Final Resul t Performing Organization Address [facility] Co de Phone Number [facility] [address] [place] [phone] * Magnesium (Once) (12/09/2024 3:23 PM EDT) Only the most recent of2 resultswithin the time period is included. Magnesium 1.9 1.8 - 2.3 mg/dL 12/09/2024 8:59 PM EDT [facility] Serum BLOOD SPECIMEN / Unknown 12/09/2024 3:23 PM EDT 12/09/2024 3:36 PM EDT us Bhupendra Kong MD LAB BLOOD ORDERABLES Final Resul t Performing Organization Address [facility] Co de Phone Number [facility] [address] [place] [phone] * (ABNORMAL) Basic Metabolic Profile Once (12/09/2024 3:23 PM EDT) Only the most recent of2 resultswithin the time period is included. Sodium 136 135 - 145 mmol/L 12/09/2024 8:59 PM EDT [facility] Potassium 4.4 3.5 - 5.0 mmol/L 12/09/2024 8:59 PM EDT [facility] Chloride 102 98 - 111 mmol/L 12/09/2024 8:59 PM EDT [facility] Carbon Dioxide 27 21 - 35 mmol/L 12/09/2024 8:59 PM EDT [facility] Anion Gap 7 3 - 13 12/09/2024 8:59 PM EDT [facility] Blood Urea Nitrogen 27(H) 10 - 25 mg/dL 12/09/2024 8:59 PM EDT [facility] Creatinine 0.92 <1.28 mg/dL 12/09/2024 8:59 PM EDT [facility] Comment:IDMS Standardized. Glucose 92 60 - 140 mg/dL 12/09/2024 8:59 PM EDT [facility] Calcium 9.3 8.2 - 10.2 mg/dL 12/09/2024 8:59 PM EDT [facility] Estimated Glomerular Filtration Rate (eGFR) 84 >60 mL/min/1.7 3m2 12/09/2024 8:59 PM EDT [facility] Comment: (NOTE) In alignment with the National Kidney Foundation and [employer] Of [place] Society of Nephrology, the estimated glomerular filtration rate (eGFR) has been refit. This equation like the former CKD-EPI eGFR equation is based on age, sex, and plasma/serum creatinine. The refit equation no longer has a race-based variable that prior equations used. The refit equation is now calculated as the CKD-EPI 2020 equation and recommended for use in adult patients. The eGFR calculation may not be reliable in metabolically unstable patients; e.g., morbid obesity, extreme muscle mass, and malnutrition. Reference: JOSE ANTONIOFarhad August 2021, 32 (89) 1117-9302. For more information, please visit the [facility] Pathology Department's electronic Laboratory User's Guide, search for GFR and see the links to the National Kidney Foundations GFR calculators at the bottom. Serum BLOOD SPECIMEN / Unknown 12/09/2024 3:23 PM EDT 12/09/2024 3:36 PM EDT us Bhupendra Kong MD LAB BLOOD ORDERABLES Final Resul t [facility] [address] [facility] [address] * CARDIOLOGY RESULTS (11/27/2024 10:49 AM EST) Narrative 11/27/2024 10:49 AM EST Ordered by an unspecified provider. us Generic Ordering CV CARDIAC SERVICES ORDERABLES Edited Result - Final * Electrophysiology Procedure (11/25/2024 10:55 AM EST) Narrative CARDIOLAB - 11/25/2024 10:55 AM EST Brittny Schaefer MD 11/25/2024 10:56 AM [facility] EP/catheterization Laboratory Elective Electrical Cardioversion Staff Attending Brittny Schaefer MD Date of Procedure 11/25/24 Indications This 79 y.o. year old patient with symptomatic new onset/persistent atrial fibrillation is referred for elective electrical cardioversion. The indication, risks, and benefits of electrical cardioversion were discussed with the patient. Informed written consent was obtained. Procedures The patient was brought to the electrophysiology laboratory in fasting state and confirmed with 2 separate identifiers. Pre-procedure verification and critical pause were completed. The procedure was performed under brief deep sedation provided by the anesthesiology service. Continuous 12 lead ECG, pulse oximetry and cuff pressure were monitored throughout the procedure. After adequate sedation was achieved, GERI was performed which did not show a YUNG clot and the patient was successfully cardioverted temporarily with 250J and 360J biphasic energy. The resulting rhythm was return of atypical atrial flutter. The patient tolerated the procedure well and left the EP laboratory in hemodynamically and neurovascularly stable condition. The following procedure related complication occurred: none. The following problems were encountered: none. us Bhupendra Kong MD CV ELECTROPHYSIOLOGY ORDERABLES Final Result CARDIOLAB * ECG 12 Lead (11/25/2024 10:34 AM EST) Only the most recent of7 resultswithin the time period is included. Ventricular Rate 95 BPM MUSE Atrial Rate 187 BPM MUSE QRS Duration 100 ms MUSE Q-T Interval 372 ms MUSE QTC Calculation 467 ms MUSE P [place] 243 degrees MUSE R [place] -49 degrees MUSE T [place] 43 degrees MUSE 11/25/2024 10:3 4 AM EST 11/29/2024 9:34 PM EST Narrative MUSE - 11/29/2024 9:34 PM EST Atrial flutter with variable AV block with premature ventricular or aberrantly conducted complexes Left axis deviation Abnormal ECG Confirmed by DARA PLASCENCIA ([id number]) on 11/29/2024 9:34:09 PM us Generic Ordering ECG ORDERABLES Final Result Performing Organization Address City/[facility]/ZIP Co de Phone Number MUSE * POC Glucose, metered, outpatient (11/25/2024 8:39 AM EST) Glucose, metered 86 60 - 140 mg/dL 11/25/2024 8:49 AM EST [facility] Comment: Performed by: Soto Nichols. Testing performed on a glucose meter. If the results do not correlate clinically, repeat on glucose meter or perform a lab draw. Blood 11/25/2024 8:39 AM EST 11/25/2024 8:49 AM EST us Brittny Schaefer MD POCT ORDERABLES - DEVICE Final R esult Performing Organization Address City/[facility]/ZIP Co de Phone Number [facility] [address] [place] [address] * Lipid Profile (Once) (12/27/2023 11:43 AM EDT) [facility] Cholesterol 123 <200 mg/dL [facility] Triglyceride 87 <200 mg/dL 12/27/2023 5:49 PM EDT [facility] HDL Cholesterol 51 >40 mg/dL 5:[facility] LDL Cholesterol 55 <130 mg/dL 4 5:49 [facility] VLDL 17 12/27/2023 5:49 PM EDT [facility] Non HDL Cholesterol 72 12/27/2023 5:49 [facility] Comment: (NOTE) Desirable: <130 mg/dL Above Desirable: 130-159 mg/dL Borderline High: 160-189 mg/dL High: 190-219 mg/dL Very High: >=220 mg/dL Serum 12/27/2023 11:4 3 AM EDT 12/27/2023 12:01 PM EDT Lico Hendrix MD LAB BLOOD ORDERABLES Final Resu lt Performing Organization Address [facility] Co de Phone Number [facility] [address] [place] [address] * Hepatitis C Antibody (10/10/2021 11:53 AM EST) Hepatitis C Antibody Negative 10/10/2021 8:07 PM EST [facility] Comment:High levels of Bioti n can interfere with this test. See Laboratory User's Guide for more information. Serum or Plasma BLOOD SPECIMEN / Unknown 10/10/2021 11:53 AM EST 10/10/2021 12:00 PM EST Lico Hendrix MD LAB BLOOD ORDERABLES Final Resu lt Performing Organization Address [facility] de Phone Number [facility] [address] [place] [address] from Last 3 Months or Most Recently Relevant [place] [address] [place] [address] [facility] [employer] Advance Directives * Full Code (Latest Code Status on File) Date Activated Date Inactivated Comments 11/25/2024 8:44 AM 11/29/2024 2:23 AM * Full Code Date Activated Date Inactivated Comments 08/13/2024 7:09 AM 08/17/2024 2:11 AM * Full Code Date Activated Date Inactivated Comments 05/26/2022 7:10 AM 05/26/2022 2:39 PM * Full Code Date Activated Date Inactivated Comments 03/01/2022 10:06 AM 03/01/2022 8:50 PM * Full Code Date Activated Date Inactivated Comments 08/23/2019 12:14 AM 08/28/2019 3:14 PM Care Teams Hot Braider Relationship Specialty Start Date End Date Lico Hendrix MD [address] [place] [address] PCP - General 08/30/15 Sara Garcia PA-C [address] [place] [address] PCP - [facility] 10/01/24
--- OUTSIDE RECORDS SUMMARY | 2024-12-25 19:52 | XMS_ITS | Encounter Summary ---
Author Organization [facility] stem Address [address] [place] [address] Care Team Providers Care Doubler Helper Name Role Phone Lico Hendrix MD Primary Care Provider Sallie Heard Unavailable [phone] Ander Oropeza CNP Unavailable Ami Bethea MD Unavailable Lico Hendrix MD Unavailable [phone] Paulette Nowak PARAPROFESSIONAL AIDE Unavailable Sara Garcia PA-C Unavailable Ander Oropeza CNP Unavailable [phone] Sara Garcia PA-C Unavailable [phone] Encounter Details Date Type Department Care Team (Late st Contact Info) Description 07/06/2016 Scanned Document [facility] Information Management - [facility] [address] [place] [address] Ordering, Generic Social History Tobacco Use Types [...] Info) Description 02/11/2025 10:30 AM EDT Appointment [facility] Electrophysiology Device Laboratory - [facility] [address] [facility] [address] [place] [id number] Bhupendra Kong MD [address] [place] [address] 04/21/2025 10:00 AM EDT Office Visit [facility] Cardiovascular Medicine - [facility] [address] [place] [address] Bhupendra Kong MD [address] [place] [address] documented as of this encounter Visit Diagnoses Not on filedocumented in this encounter Additional Health Concerns Assessment Noted Time PHQ-9 Depression Total Score: 2 06/01/20 16 8:59 AM EDT A Body Mass Index follow-up plan has been documented for the patient 10/30/2014 12:00 PM EST PHQ-2 Depression Total Score: 2 06/01/20 16 8:59 AM EDT documented as of this encounter Care Teams Doubler Helper Relationship Specialty Start Date End Date Lico Hendrix MD [address] [place] [address] PCP - General 08/30/15 [place] [address] [address] [place] [address] PCP - [facility] 03/31/23 12/30/23 Ander Oropeza CNP [address] [place] [address] PCP - [facility] 12/30/22 03/30/23 [place] [address] [place] [address] PCP - [facility] 10/01/22 12/29/22 Lico Hendrix MD [address] [place] [address] PCP - [facility] 12/30/21 2 Paulette Nowak PARAPROFESSIONAL AIDE [address] [place] [address] PCP - [facility] 10/01/21 12/29/21 Sara Garcia PA-C [address] [place] [address] PCP - [facility] 12/31/23 4 Ander Oropeza CNP [address] [place] [address] PCP - [facility] 07/01/24 4 Sara Garcia PA-C [address] [place] [address] PCP - [facility] 10/01/24 documented as of this encounter
--- OUTSIDE RECORDS SUMMARY | 2024-12-25 19:52 | XMS_ITS | Encounter Summary ---
Author Organization [facility] stem Address [address] [place] [address] Care Team Providers Care Bioassayist Name Role Phone Virginia Beckett MD Primary Care Provider Unava Lico Martin MD Primary Care Provider Sallie Heard Unavailable [phone] Ander Oropeza CNP Unavailable [phone] Ami Bethea MD Unavailable [phone] Lico Hendrix MD Unavailable [phone] Paulette oNwak CNP Unavailable Sara Garcia PA-C Unavailable Ander Oropeza CNP Unavailable [phone] Sara Garcia PA-C Unavailable Encounter Details Date Type Department Care Team (Late st Contact Info) Description 03/10/2014 Scanned Document [facility] Information Management - [facility] [address] [place] [address] Ordering, Generic Social History Tobacco Use Types [...] on file documented as of this encounter Progress Notes * Ordering, Generic - 03/10/2014 12:00 PM EDT documented in this encounter Plan of Treatment Upcoming Encounters Date Type Department Care Team (Late st Contact Info) Description 02/11/2025 10:30 AM EDT Appointment [facility] Electrophysiology Device Laboratory - [facility] [address] [facility] [place] [id number] Bhupendra Kong MD [address] [place] [address] 04/21/2025 10:00 AM EDT Office Visit [facility] Cardiovascular Medicine - [facility] [address] [place] [address] Bhupendra Kong MD [address] [place] [address] documented as of this encounter Visit Diagnoses Not on filedocumented in this encounter Care Teams Bioassayist Relationship Specialty Start Date End Date Virginia Beckett MD PCP - General 08/02/12 08/29/15 Lico Hendrix MD [address] [place] [address] PCP - General 08/30/15 [place] [address] [address] [place] [address] PCP - [facility] 03/31/23 12/30/23 Ander Oropeza CNP [address] [place] [address] PCP - [facility] 12/30/22 03/30/23 [place] [address] [address] [place] [address] PCP - [facility] 10/01/22 12/29/22 Lico Hendrix MD [address] [place] [address] PCP - [facility] 12/30/21 2 Paulette Nowak CNP [address] [place] [address] PCP - [facility] 10/01/21 12/29/21 Sara Garcia PA-C [address] [place] [address] PCP - [facility] 12/31/23 4 Ander Oropeza CNP [address] [place] [address] PCP - [facility] 07/01/24 4 Sara Garcia PA-C [address] [place] [address] PCP - [facility] 10/01/24 documented as of this encounter
[2024-12-25 19:57] LABS: Troponin I < 0.012 ng/mL (0.000-0.034)
--- NOTE | 2024-12-25 20:05 | PC.NURSE ---
Went to administer IV Metoprolol, patient states he does not want it because his heart rate is always in the 120's and irregular. Educated patient. Patient still refused medication. EDP aware.
[2024-12-25 20:12] VITALS: BP 104/86; PULSE 127
[2024-12-25 20:13] VITALS: BP 108/84; PULSE 128
[2024-12-25 20:15] VITALS: BP 104/86; PULSE 128
[2024-12-25] MEDS: SODIUM CHLORIDE 0.9% IV 1,000 ML 999 ML IV CONT (20:33)
[2024-12-25 21:19] VITALS: BP 114/96; PULSE 124; RESP 15; O2SAT 98
[2024-12-25 22:41] VITALS: BP 116/84; PULSE 123; RESP 15; O2SAT 100
== END 2024-12-25 22:42 | disposition home or self-care (01) ==
PROVIDERS: Emergency Provider Student in an Organized Health Care Education/Training Program
DX: R00.2 Palpitations (principal); R00.0 Tachycardia, unspecified; I49.3 Ventricular premature depolarization; I48.91 Unspecified atrial fibrillation; I48.92 Unspecified atrial flutter; I44.0 Atrioventricular block, first degree; I45.10 Unspecified right bundle-branch block; R94.31 Abnormal electrocardiogram [ECG] [EKG]
CPT/HCPCS: 36415; 71045; 80053; 83690; 83735; 84443; 84484; 85025; 85610; 85730; 93005; 96360; 99284; J7030